=== PATIENT | male | born 2000 | race Two or more races ===

== ENCOUNTER 2022-10-25 05:38 | Emergency (ER) | payer SELFPAY ==
[2022-10-25] MEDS ORDERED: predniSONE 20 MG Tab PO ONE (05:39)
[2022-10-25] MEDS ORDERED: Albuterol 8 GM Inhaler INH ONE (05:39)
[2022-10-25] MEDS ORDERED: Albuterol/Ipratropium 3.0-0.5 MG/3 ML Neb Soln NEB STA (05:45)
== END 2022-10-25 06:40 | disposition home or self-care (01) ==
LOC: FB.ED 05:38
DX: J45.41 Moderate persistent asthma with (acute) exacerbation (principal); Z79.899 Other long term (current) drug therapy
CPT/HCPCS: 71046; 99283; 99284; A9270-GY; J7512; J7620

== ENCOUNTER 2023-08-26 08:02 | Day surgery (SDC) | payer MEDICAID ==
[2023-08-26] MEDS ORDERED: fentaNYL 100 MCG/2 ML SDV IV ONE (08:03)
[2023-08-26] MEDS ORDERED: Propofol 200 MG/20 ML SDV IV ONE (08:03)
[2023-08-26] MEDS ORDERED: Midazolam 1 MG/ML 2 ML SDV IV ONE (08:03)
[2023-08-26] MEDS ORDERED: Lactated Ringers 1,000 ML IV SCH (08:30)
[2023-08-26] MEDS ORDERED: Sodium Chloride 0.9% 10 ML Syringe FLUSH PRN (08:30)
== END 2023-08-26 11:32 | disposition home or self-care (01) ==
LOC: FB.SDS 08:02
PROVIDERS: ATTEND Surgery
DX: K29.50 Unspecified chronic gastritis without bleeding (principal); K29.80 Duodenitis without bleeding; J45.909 Unspecified asthma, uncomplicated; R63.4 Abnormal weight loss; Z68.20 Body mass index [BMI] 20.0-20.9, adult; Z79.899 Other long term (current) drug therapy
CPT/HCPCS: 00731; 88305; 88342; J2250; J2704; J3010; J7120